=== PATIENT | male | born 1950 | race Caucasian/White ===

== ENCOUNTER 2017-09-13 12:04 | Observation (INO) | payer BC ==
[2017-09-07 10:11] VITALS: BP 146/71
[~2017-09-13] VITALS: Ht 170.2 cm; Wt 73.8 kg
[~2017-09-13 12:04] MED LIST: CHOL200024 PO; DEXAMETHASONE 4 MG/ML, 1ML ONE; ENAL20TA PO; FINA5TAB4 PO; FOLI-17 PO; LOVA40TA2 PO; MESA1.2T PO; METF500T4 PO; MULT-516 PO; ONDANSETRON 2MG/ML, 2ML ONE; TAMS-11 PO; VITAMIN B12
[2017-09-13] MEDS ORDERED: LACTATED RINGERS 1,000 ML IV SCH (12:36)
[2017-09-13] MEDS ORDERED: LIDOCAINE 1%, 2ML SQ PRN (13:00)
[2017-09-13] MEDS ORDERED: MIDAZOLAM 1 MG/ML, 2ML ONE (14:09)
[2017-09-13] MEDS ORDERED: LIDOCAINE-MPF 2% ,5ML ONE (14:09)
[2017-09-13] MEDS ORDERED: FENTANYL PF 100 MCG/2ML ONE (14:09)
[2017-09-13] MEDS ORDERED: CEFAZOLIN 1,000 MG ONE (14:09)
[2017-09-13] MEDS ORDERED: PROPOFOL 10 MG/ML, 20ML ONE (14:09)
[2017-09-13] MEDS ORDERED: MEPERIDINE/PF 25MG/0.5ML IVPush PRN (15:30)
[2017-09-13] MEDS ORDERED: HYDROmorphone 1 MG/ML, 1ML IV PRN (15:30)
[2017-09-13] MEDS ORDERED: hydrALAzine 20 MG/ML, 1ML IV PRN (15:30)
[2017-09-13] MEDS ORDERED: PROMETHAZINE 25 MG/ML, 1ML IV PRN (15:30)
[2017-09-13] MEDS ORDERED: KETAMINE 10 MG/ML, 20ML ONE (15:30)
[2017-09-13] MEDS ORDERED: ACETAMINOPHEN 325 MG TABLET PO PRN ×2 (15:30→22:00)
[2017-09-13] MEDS ORDERED: LORazepam 2 MG/ML, 1ML IVPush PRN (15:30)
[2017-09-13] MEDS ORDERED: OXYcodone 5 MG/5 ML ORAL.SOL UDC PO PRN (15:30)
[2017-09-13] MEDS ORDERED: FENTANYL PF 100 MCG/2ML IV PRN (15:30)
[2017-09-13] MEDS ORDERED: OXYcodone 5 MG/5 ML ORAL.SOL UDC ONE (16:38)
[2017-09-13] MEDS ORDERED: ACETAMINOPHEN 650 MG/20.3 ML UDC ONE (16:38)
[2017-09-13] MEDS ORDERED: ACETAMINOPHEN 325 MG TABLET ONE (16:39)
[2017-09-13] MEDS: LACTATED RINGERS 1,000 ML IV SCH (18:30)
[2017-09-13] MEDS ORDERED: morphine SULFATE 10 MG/ML, 1ML IV PRN (19:00)
[2017-09-13] MEDS ORDERED: OPIUM/BELLADONNA SUPP.RECT 16.2-60 MG PR PRN (19:00)
[2017-09-13] MEDS ORDERED: ONDANSETRON 2MG/ML, 2ML IV PRN (19:00)
[2017-09-13 19:55] VITALS: BP 126/76
[2017-09-13] MEDS ORDERED: LOVASTATIN 40 MG TABLET PO SCH (21:00)
[2017-09-13] MEDS ORDERED: ZOLPIDEM 5MG TABLET PO PRN (22:00)
[2017-09-13] MEDS: OXYcodone/APAP 5/325MG TABLET PO PRN (22:14)
[2017-09-14 00:20] VITALS: BP 125/78
[2017-09-14] MEDS: OXYcodone/APAP 5/325MG TABLET PO PRN ×3 (02:15→11:18)
[2017-09-14 03:38] VITALS: BP 122/71
[2017-09-14] MEDS: LACTATED RINGERS 1,000 ML IV SCH (04:03)
[2017-09-14 07:07] VITALS: BP 145/71
[2017-09-14] MEDS ORDERED: metFORMIN 500 MG TABLET PO SCH (08:00)
[2017-09-14] MEDS ORDERED: MULTIVITAMIN 1 TABLET PO SCH (09:00)
[2017-09-14] MEDS ORDERED: CYANOCOBALAMIN 1,000 MCG TABLET PO SCH (09:00)
[2017-09-14] MEDS ORDERED: ENALAPRIL 20MG TABLET PO SCH (09:00)
[2017-09-14] MEDS ORDERED: FOLIC ACID 1 MG TABLET PO SCH (09:00)
[2017-09-14] MEDS ORDERED: CHOLECALCIFEROL 1,000 UNIT TABLET PO SCH (09:00)
[2017-09-14 11:18] VITALS: BP 130/79
[2017-09-14] MEDS ORDERED: HYDR-3240 PO (13:13)
== END 2017-09-14 13:22 | disposition home or self-care (01) ==
LOC: OUT 12:04 → 4NOR 17:50 → OUT 09-14 09:26 → DCLOUNGE 09-14 13:04
PROVIDERS: ADMIT Urology; ATTEND Urology
DX: N40.1 Benign prostatic hyperplasia with lower urinary tract symptoms (principal); N13.8 Other obstructive and reflux uropathy; N39.0 Urinary tract infection, site not specified; E78.2 Mixed hyperlipidemia; I10 Essential (primary) hypertension; N35.9 Urethral stricture, unspecified; N49.9 Inflammatory disorder of unspecified male genital organ; E11.9 Type 2 diabetes mellitus without complications; E78.00 Pure hypercholesterolemia, unspecified; Z80.1 Family history of malignant neoplasm of trachea, bronchus and lung; Z82.49 Family history of ischemic heart disease and other diseases of the circulatory system
CPT/HCPCS: 52630; 82962; 88305; G0378; J0690; J1100; J2250; J2405; J2704; J3010; J3490; J7120

== ENCOUNTER → 2017-10-12 | Outpatient (CLI) | payer BC ==
[~2017-10-12] MED LIST changes: -DEXAMETHASONE 4 MG/ML, 1ML ONE; +HYDR-3240 PO; -ONDANSETRON 2MG/ML, 2ML ONE
== END ==
LOC: STAR 11:42
PROVIDERS: ATTEND Orthopaedic Surgery
DX: Z02.9 Encounter for administrative examinations, unspecified (principal)

== ENCOUNTER 2017-10-22 08:23 | Day surgery (SDC) | payer BC ==
[2017-10-12 14:45] VITALS: BP 144/86
[~2017-10-22] VITALS: Ht 170.2 cm; Wt 68.7 kg
[2017-10-22] MEDS ORDERED: LACTATED RINGERS 1,000 ML IV SCH (09:28)
[2017-10-22] MEDS ORDERED: LIDOCAINE 1%, 2ML SQ PRN (09:30)
[2017-10-22] MEDS ORDERED: FENTANYL PF 100 MCG/2ML ONE (09:48)
[2017-10-22] MEDS ORDERED: MIDAZOLAM 1 MG/ML, 2ML ONE (09:48)
[2017-10-22] MEDS ORDERED: PROPOFOL 10 MG/ML, 20ML ONE (09:50)
[2017-10-22] MEDS ORDERED: DEXAMETHASONE 4 MG/ML, 1ML ONE ×2 (09:50→09:55)
[2017-10-22] MEDS ORDERED: ONDANSETRON 2MG/ML, 2ML ONE (09:50)
[2017-10-22] MEDS ORDERED: CEFAZOLIN 1,000 MG ONE (09:50)
[2017-10-22] MEDS ORDERED: BUPIVACAINE/PF 0.5% ONE (11:13)
[2017-10-22] MEDS ORDERED: LIDOCAINE-MPF 2% ,5ML ONE (11:13)
[2017-10-22] MEDS ORDERED: HYDROmorphone 1 MG/ML, 1ML IV PRN (11:30)
[2017-10-22] MEDS ORDERED: OXYcodone 5 MG/5 ML ORAL.SOL UDC PO PRN (11:30)
[2017-10-22] MEDS ORDERED: hydrALAzine 20 MG/ML, 1ML IV PRN (11:30)
[2017-10-22] MEDS ORDERED: ALBUTEROL/IPRATROPIUM 2.5MG/0.5MG, 3 ML NPPB PRN (11:30)
[2017-10-22] MEDS ORDERED: DIAZEPAM 5 MG/ML, 2ML IVPush PRN (11:30)
[2017-10-22] MEDS ORDERED: ACETAMINOPHEN 325 MG TABLET PO PRN (11:30)
[2017-10-22] MEDS ORDERED: FENTANYL PF 100 MCG/2ML IV PRN (11:30)
[2017-10-22] MEDS ORDERED: MIDAZOLAM 1 MG/ML, 2ML IV PRN (11:30)
[2017-10-22] MEDS ORDERED: LABETALOL 5MG/ML, 20ML IV PRN (11:30)
[2017-10-22] MEDS ORDERED: PROMETHAZINE 25 MG/ML, 1ML IV PRN (11:30)
[2017-10-22] MEDS ORDERED: MEPERIDINE/PF 25MG/0.5ML IVPush PRN (11:30)
[2017-10-22] MEDS ORDERED: ONDANSETRON 2MG/ML, 2ML IVPush PRN (11:30)
== END 2017-10-22 14:50 ==
LOC: OUT 08:23
PROVIDERS: ATTEND Orthopaedic Surgery
DX: M20.32 Hallux varus (acquired), left foot (principal); M77.42 Metatarsalgia, left foot; E11.9 Type 2 diabetes mellitus without complications; I10 Essential (primary) hypertension; E78.5 Hyperlipidemia, unspecified; N40.0 Benign prostatic hyperplasia without lower urinary tract symptoms; Z98.890 Other specified postprocedural states
CPT/HCPCS: 28296; 28308; 73620; 76001; 82962; C1713; J0690; J1100; J2250; J2405; J2704; J3010; J3490; J7120